=== PATIENT | female | born 1950 | race Caucasian/White ===

== ENCOUNTER → 2016-10-25 | Outpatient (CLI) | payer MEDICARE, BC ==
[~2016-10-25] MED LIST: COZAAR100 MG PO
== END ==
LOC: CT 09:00
DX: N18.3 Chronic kidney disease, stage 3 (moderate) (principal); D50.9 Iron deficiency anemia, unspecified; D69.6 Thrombocytopenia, unspecified; Z85.118 Personal history of other malignant neoplasm of bronchus and lung; Z90.5 Acquired absence of kidney; M54.9 Dorsalgia, unspecified; R30.0 Dysuria; R31.9 Hematuria, unspecified; Z90.2 Acquired absence of lung [part of]
CPT/HCPCS: 71250; 74150

== ENCOUNTER → 2020-12-23 | Outpatient (CLI) | payer MEDICARE, BC | LOC: KOH-I 16:18 | DX: M25.562 Pain in left knee (principal); M17.12 Unilateral primary osteoarthritis, left knee | CPT/HCPCS: 73562 ==

== ENCOUNTER → 2021-02-17 | Outpatient (CLI) | payer MEDICARE, BC | LOC: KOH-I 14:30 → EMI 16:02 | DX: M25.562 Pain in left knee (principal); M25.462 Effusion, left knee; M17.12 Unilateral primary osteoarthritis, left knee; S83.242A Other tear of medial meniscus, current injury, left knee, initial encounter | CPT/HCPCS: 73721 ==

== ENCOUNTER → 2022-01-17 | Outpatient (CLI) | payer MEDICARE, BC ==
[~2022-01-17] MED LIST changes: +BUPROPION HCL150 MG PO; +CITALOPRAM HBR20 MG PO; +COZAAR 25MG TAB25 MG PO; +CRESTOR 10 MG T10 MG PO; +FLONASE ALLER15.8 ML; +GLUCOPHAGE 850850 MG PO; +LEVOXYL100 MCG PO; +LOPRESSOR 50 MG50 MG GT; +MILK THISTLE175 M1 PO; +OMEGA RED PO; +PROVENTIL HFA6.7 GM INH; +VITAMIN B-121000 MCG PO; +ZETIA10 MG PO
[2022-01-17 09:52] LABS: HEMOGLOBIN 10.8 gm/dl (12.3-15.3); RED BLOOD COUNT 3.62 M/UL (4.00-5.10); WHITE BLOOD COUNT 5.1 K/UL (4.5-11.0)
== END ==
LOC: EDSTATUS 08:00 → OPSV2 08:00
PROVIDERS: Orthopaedic Surgery
DX: Z01.818 Encounter for other preprocedural examination (principal); M17.12 Unilateral primary osteoarthritis, left knee
CPT/HCPCS: 36415; 71046; 80048; 83036; 85027; 93005

== ENCOUNTER → 2022-01-26 | Outpatient (CLI) | payer MEDICARE, BC ==
[~2022-01-26] MED LIST changes: +ASPIRIN EC81 MG PO; +CRESTOR10 MG PO; -LOPRESSOR 50 MG50 MG GT; +LOPRESSOR 50 MG50 MG PO; +ROXICODONE5 MG PO; +SYMBICORT 16010.2 GM INH; +TYLENOL EXTRA500 MG PO; +VITAMIN D350 MC3 PO
== END ==
LOC: HEART 5 07:42
DX: Z01.810 Encounter for preprocedural cardiovascular examination (principal); I25.10 Atherosclerotic heart disease of native coronary artery without angina pectoris; Z98.61 Coronary angioplasty status
CPT/HCPCS: 78452; A9502; J2785

== ENCOUNTER → 2022-01-29 | Outpatient (CLI) | payer MEDICARE, BC ==
[~2022-01-29] MED LIST changes: +ELIQUIS 2.5 MG2.5 MG PO
[2022-01-29 11:12] LABS: BUN/CREATININE RATIO 22 (0-10)
== END ==
LOC: LAB 10:28
PROVIDERS: Orthopaedic Surgery
DX: Z01.812 Encounter for preprocedural laboratory examination (principal)
CPT/HCPCS: 80048; 86850; 86900; 86901

== ENCOUNTER 2022-01-30 05:16 | Day surgery (SDC) | payer MEDICARE, BC ==
[~2022-01-30] VITALS: Ht 160 cm; Wt 89.2 kg
[~2022-01-30 05:16] MED LIST changes: -ASPIRIN EC81 MG PO; -CRESTOR10 MG PO; -ELIQUIS 2.5 MG2.5 MG PO; -ROXICODONE5 MG PO; -SYMBICORT 16010.2 GM INH; -TYLENOL EXTRA500 MG PO; -VITAMIN D350 MC3 PO
[2022-01-30] MEDS ORDERED: TYLENOL EXTRA500 MG PO (06:16)
[2022-01-30] MEDS ORDERED: CRESTOR10 MG PO (14:48)
[2022-01-30] MEDS ORDERED: ZETIA10 MG PO (14:49)
[2022-01-30] MEDS ORDERED: ASPIRIN EC81 MG PO (14:51)
[2022-01-30] MEDS ORDERED: SYMBICORT 16010.2 GM INH (14:51)
[2022-01-30] MEDS ORDERED: VITAMIN D350 MC3 PO (14:53)
[2022-01-30] MEDS ORDERED: ROXICODONE5 MG PO (14:58)
[2022-01-31 03:31] LABS: HEMOGLOBIN 7.2 gm/dl (12.3-15.3); RED BLOOD COUNT 2.43 M/UL (4.00-5.10); WHITE BLOOD COUNT 5.8 K/UL (4.5-11.0)
[2022-01-31] MEDS ORDERED: ELIQUIS 2.5 MG2.5 MG PO (09:18)
[2022-01-31 14:45] LABS: HEMOGLOBIN 7.6 gm/dl (12.3-15.3)
[2022-02-01 05:11] LABS: HEMOGLOBIN 7.6 gm/dl (12.3-15.3)
== END 2022-02-01 11:45 | disposition home or self-care (01) ==
LOC: CCU 05:16 → OR 05:16 → EDSTATUS 07:30 → CCU 11:33 → OR 02-01 11:45
PROVIDERS: Internal Medicine; Nurse Practitioner Family; Physician Assistant
DX: M17.12 Unilateral primary osteoarthritis, left knee (principal); D62 Acute posthemorrhagic anemia; M21.162 Varus deformity, not elsewhere classified, left knee; G89.29 Other chronic pain; I12.9 Hypertensive chronic kidney disease with stage 1 through stage 4 chronic kidney disease, or unspecified chronic kidney disease; E11.22 Type 2 diabetes mellitus with diabetic chronic kidney disease; N18.2 Chronic kidney disease, stage 2 (mild); E78.5 Hyperlipidemia, unspecified; E03.9 Hypothyroidism, unspecified; E66.9 Obesity, unspecified; I25.10 Atherosclerotic heart disease of native coronary artery without angina pectoris; Z95.5 Presence of coronary angioplasty implant and graft; Z96.642 Presence of left artificial hip joint; Z87.891 Personal history of nicotine dependence; Z88.5 Allergy status to narcotic agent; Z79.82 Long term (current) use of aspirin; Z79.84 Long term (current) use of oral hypoglycemic drugs; Z79.899 Other long term (current) drug therapy
CPT/HCPCS: 36415; 73560; 80048; 82962; 85014; 85018; 85025; 94640; 94664; 94760; 97116; 97116-GP-CQ; 97161; 97165; 97530-GP-CQ; 97535; C1713; C1776; J0171; J0690; J1100; J1170; J1885; J2001; J2274; J2370; J2405; J2704; J2710; J2795; J3370

== ENCOUNTER 2022-02-08 09:47 | Emergency (ER) | payer MEDICARE, BC ==
[~2022-02-08 09:47] MED LIST changes: +ASPIRIN EC81 MG PO; +CRESTOR10 MG PO; +ELIQUIS 2.5 MG2.5 MG PO; +ROXICODONE5 MG PO; +SYMBICORT 16010.2 GM INH; +TYLENOL EXTRA500 MG PO; +VITAMIN D350 MC3 PO
[2022-02-08 10:53] LABS: RED BLOOD COUNT 2.41 M/UL (4.00-5.10); WHITE BLOOD COUNT 8.5 K/UL (4.5-11.0)
[2022-02-08 16:03] LABS: HEMOGLOBIN 7.6 gm/dl (12.3-15.3)
== END 2022-02-08 17:10 | disposition home or self-care (01) ==
LOC: ER1 09:47
PROVIDERS: Physician Assistant
DX: D64.9 Anemia, unspecified (principal); E11.9 Type 2 diabetes mellitus without complications; I10 Essential (primary) hypertension; E78.5 Hyperlipidemia, unspecified; J44.9 Chronic obstructive pulmonary disease, unspecified; Z85.118 Personal history of other malignant neoplasm of bronchus and lung; Z90.5 Acquired absence of kidney; Z90.49 Acquired absence of other specified parts of digestive tract; Z88.6 Allergy status to analgesic agent; Z88.5 Allergy status to narcotic agent; Z79.01 Long term (current) use of anticoagulants; Z87.891 Personal history of nicotine dependence; Z90.2 Acquired absence of lung [part of]
CPT/HCPCS: 80053; 85014; 85018; 85025; 86850; 86900; 86901; 86920; 99285; P9016